=== PATIENT | female | born 1985 | race Caucasian/White ===

== ENCOUNTER 2022-06-03 10:32 | Outpatient (CLI) | payer OTHER, SELFPAY | END 2022-06-03 10:33 | disposition home or self-care (01) | LOC: LKVREF 06-07 14:45 | PROVIDERS: PCP Physician Assistant Medical; Visit Provider Nurse Practitioner Family | DX: R30.0 Dysuria (principal); R10.9 Unspecified abdominal pain | CPT/HCPCS: 87086; 87186 ==

== ENCOUNTER 2023-07-17 01:50 | Emergency (ER) | payer OTHER, SELFPAY ==
[2023-07-17 01:59] VITALS: BP 131/73; PULSE 102; RESP 18; TEMP 37.6; O2SAT 97; BMI 25.7
--- NOTE | 2023-07-17 02:12 | ED.NAVMDI ---
HPI - Nausea/Vomiting/Diarrhea General Time Seen by Provider: 02:12 Date Seen: 07/17/23 Chief complaint: Nausea/Vomiting Stated complaint: Abdominal Pain/Diarrhea/Fever Time Seen by Provider: 07/17/23 02:12 Source: patient and RN notes reviewed Mode of arrival: ambulatory Limitations: no limitations History of Present Illness HPI Narrative: Augusta is a very pleasant 37-year-old female with a history of IBS who comes to the emergency room for evaluation regarding abdominal pain with diarrhea fever and vomiting. Patient notes the onset of this earlier this evening. Prior to coming here she noted a temp of a 100.3?. She denies any recent travel or other ill contacts at home. She notes that now she has abdominal pain in the right upper quadrant. She describes this is quite severe. She has not been able to take any medications and is requesting something for pain although she states that she cannot take narcotics because they make her sick. She feels like she is very dehydrated. She denies any back pain or radiating pain from the belly. She notes no dysuria. No blood in her stool or vomit. No recent travel, antibiotic use, ingestion of uncooked meats. Associated nausea: Yes Related Data Home Medications Medication Instructions Recorded Confirmed No Known Home Medications 07/17/23 07/17/23 Allergies Allergy/AdvReac Type Severity Reaction Status Date / Time lorazepam [From Ativan] Allergy Verified 07/17/23 02:04 Review of Systems Status of ROS: Reports: 10 or more systems reviewed and unremarkable except as noted in History and below Narrative: Denies as she just finished her. Const: Reports: fever and fatigue; Denies: chills ENMT: Denies: throat pain, neck pain, throat swelling, difficulty swallowing or hoarseness Cardio: Denies: chest pain or shortness of breath with exertion Resp: Denies: shortness of breath, cough or wheezing GI: Reports: abdominal pain, nausea, vomiting and diarrhea; Denies: difficulty swallowing or blood in stool : Denies: painful urination or urinary frequency Musculo: Denies: neck pain Integ/Breast: Denies: rash Neuro: Denies: headache Endo: Reports: fatigue Allergy/Immuno: Denies: throat swelling or wheezing PFSH PFSH Social History Smoking Status: Never smoker Do you use any of these nicotine containing products: None How often do you have a drink containing alcohol: never AUDIT-C Alcohol total score: 0 Non-prescribed substance use: denies use Exam Narrative: Exam Narrative: Patient is alert and oriented. She is nontoxic in appearance but does appear fatigued. Eyes ears nose clear. Tacky mucous membranes. Lips are dry. Neck is supple. No lymphadenopathy. Heart with a tachycardic rate but normal rhythm. Lungs are clear bilaterally. No CVA tenderness with percussion. Abdomen is soft but she has positive Aprada sign with right upper quadrant I tenderness with palpation. Bowel sounds are with increased sound. Moving all extremities Const: Vital Signs, click to edit/add: Vital Signs - 24 hr 07/17/23 01:59 07/17/23 04:30 Temperature 99.6 F Pulse Rate 95 Pulse Rate [Pulse Oximeter] 102 H Respiratory Rate 18 16 Blood Pressure 110/68 Blood Pressure [Ri ght Upper Arm] 131/73 Pulse Oximetry 97 98 Oxygen Delivery Me thod Room Air Room Air Documenting provider has reviewed patient's vital signs: yes Course Course ED Course: At this time differential diagnosis includes but is not limited to cholecystitis, colitis, gastroenteritis, enteritis, viral syndrome, hepatitis. Patient will have IV placed be given Toradol 15 mg IV Zofran 4 mg IV and 1 L normal saline. Given her examination do suggest CT with IV contrast. Will also check CBC, comprehensive panel, bili room, lactate, CRP, urinalysis. Reevaluation(s) Reevaluation #1: Patient notes resolution of nausea and improvement of pain. She continues to decline any narcotic pain medication at this time. Reevaluation #2: Patient notes she is much better after 2 L of normal saline. Vital Signs Vital signs: Initial Vital Signs Temperature 99.6 F 07/17/23 01:59 Temperature Source Temporal Artery Scan 07/17/23 01:59 Pulse Rate 102 H 07/17/23 01:59 Respiratory Rate 18 07/17/23 01:59 Blood Pressure 131/73 07/17/23 01:59 Blood Pressure Mean 92 07/17/23 01:59 Blood Pressure Position Supine 07/17/23 01:59 Pulse Oximetry 97 07/17/23 01:59 Oxygen Delivery Method Room Air 07/17/23 01:59 Vital Signs Temperature 99.6 F 07/17/23 01:59 Pulse Rate 102 H 07/17/23 01:59 Respiratory Rate 18 07/17/23 01:59 Blood Pressure 131/73 07/17/23 01:59 Pulse Oximetry 97 07/17/23 01:59 Oxygen Delivery Method Room Air 07/17/23 01:59 Temperature 99.6 F 07/17/23 01:59 Pulse Rate 95 07/17/23 04:30 Respiratory Rate 16 07/17/23 04:30 Blood Pressure 110/68 07/17/23 04:30 Pulse Oximetry 98 07/17/23 04:30 Oxygen Delivery Method Room Air 07/17/23 04:30 MDM - Nausea/Vomiting/Diarrhea MDM Narrative Medical decision making narrative: 1. Colitis-patient has what appears to be bowel wall thickening from the cecum to the splenic flexure. No evidence of cholecystitis or stones noted. ( also states that she had an ultrasound in October that was negative for stones). Patient without blood in the stool. Not septic at this time with a normal lactate. 2 L normal saline is given. Patient will be discharged home with Zofran as needed for nausea. She declines any narcotic pain medications and will be using ibuprofen at home. If patient has ongoing symptoms in diarrhea we may get a stool culture. She may also need additional radiological studies such as ultrasound or repeat CT if she is not improving. 2. Dehydration-2 L normal saline given 3. Disposition-home with . Rest, push fluids as much as possible. Zofran as needed for nausea. Return for worsening symptoms. Medical Records Attestation: I reviewed the patient's medical records. Lab Data Attestation: I reviewed the patient's lab results. Labs: Lab Results 07/17/23 Range/Units 02:17 WBC 12.30 H (4.50-11.00) K/uL RBC 4.60 (4.00-5.20) m/uL Hgb 13.4 (12.0-16.0) gm/dL Hct 40.4 (33.0-51.0) % MCV 88 (80-100) fL MCH 29 (26-34) pg MCHC 33 (32-36) gm/dL RDW Coeff of Selvin 12.9 (11.5-15.5) % Plt Count 244 (140-440) K/uL Neut % (Auto) 89.4 H (42.0-72.0) % Lymph % (Auto) 3.1 L (20-44) % [place] % (Auto) 6.0 (0.0-11.0) % Eos % (Auto) 0.2 (0.0-7.0) % Baso % (Auto) 0.2 (0.0-3.0) % Neut # (Auto) 11.00 H (1.7-7.0) K/uL Lymph # (Auto) 0.40 L (0.90-2.90) K/uL [place] # (Auto) 0.70 (0.00-0.90) K/UL Eos # (Auto) 0.00 (0.00-0.50) K/uL Baso # (Auto) 0.00 (0.00-0.30) K/uL Abs Immat Gran (auto) 0.10 (0.00-0.30) K/uL Imm/Tot Granulo (auto) 1.1 % Sodium 139 (135-149) mmol/L Potassium 3.9 (3.6-5.1) mmol/L Chloride 104 (96-114) mmol/L Carbon Dioxide 21 (20-32) mmol/L Anion Gap 14 (7-15) mEq/L BUN 8 (5-24) mg/dL Creatinine 0.6 (0.5-1.5) mg/dL Estimated Creat Clear 108.70 Estimated GFR 117 ml/min Glucose 123 H (60-115) mg/dL Lactate 1.2 (0.5-1.9) mmol/L Calcium 9.1 (8.4-10.6) mg/dL Total Bilirubin 0.7 (0.1-1.5) mg/dL Direct Bilirubin 0.1 (0.0-0.5) mg/dL AST 38 H (12-35) U/L ALT 41 H (4-35) U/L Alkaline Phosphatase 69 (40-150) U/L C-Reactive Protein 2.0 H (0.5-1.0) mg/dL Total Protein 7.9 (6.0-8.3) g/dL Albumin 4.7 (3.3-5.0) g/dL Imaging Data CT scan - abdomen: Attestation: I have reviewed the pertinent imaging results. My impression: Gallbladder appears to be without evidence of wall thickening or stones. Radiologist's impression: Lower chest: Unremarkable. Liver: Moderate fatty infiltration of the liver is noted. Spleen: Unremarkable. Pancreas: Unremarkable. Gallbladder: Unremarkable. Kidney: Unremarkable. No kidney or ureteral stones or obstruction seen. Adrenal: Unremarkable. Bowel: The colon is collapsed and difficult to evaluate but there is suspected wall thickening present from the cecum to the splenic flexure. The appendix is normal in appearance and size. Vascular: Unremarkable. Lymph: Unremarkable. Peritoneum: Unremarkable. No pneumoperitoneum is seen. No significant ascites is noted. Pelvis: Unremarkable. Soft tissue: Unremarkable. Bone: Unremarkable for age. IMPRESSION: 1. The colon is collapsed and difficult to evaluate but there is suspected wall thickening present from the cecum to the splenic flexure. This may be due to infectious colitis or inflammatory bowel disease. Discharge Plan Discharge Clinical Impression: Colitis, Abdominal pain, vomiting, and diarrhea Patient Disposition: Home, Self-Care Condition: Improved Additional Instructions: Zofran as needed for nausea. 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 Try to push fluids as much as possible but not just water. Sprite, Gatorade, Powerade, Pedialyte except trap are all very acceptable. Light foods such as rice, toast, Cheerios also very acceptable. Avoid dairy at this time. Return to the emergency room for increasing fever, inability to take in food or drink, worsening pain and worsening symptoms. Prescriptions: No Action No Known Home Medications Follow Up/Referrals: Mabel Chapman PA-C [Primary Care Provider] - Stand Alone Forms: [facility] Info Instructions
--- NOTE | 2023-07-17 02:22 | CRLHL7_ITS ---
For Patients: As a result of the Century Cures Act, medical imaging exams and procedure reports are released immediately into your electronic medical record. You may view this report before your referring provider. If you have questions, please contact your health care provider. INDICATION: Right sided abdominal pain. Nausea and vomiting right ovarian cystic lesion present 2.5 cm. TECHNIQUE: CT Abdomen and pelvis with i.v. contrast. Coronal and sagittal reformats were obtained. CONTRAST: 74 mL Isovue 370 COMPARISON: None FINDINGS: Lower chest: Unremarkable. Liver: Moderate fatty infiltration of the liver is noted. Spleen: Unremarkable. Pancreas: Unremarkable. Gallbladder: Unremarkable. Kidney: Unremarkable. No kidney or ureteral stones or obstruction seen. Adrenal: Unremarkable. Bowel: The colon is collapsed and difficult to evaluate but there is suspected wall thickening present from the cecum to the splenic flexure. The appendix is normal in appearance and size. Vascular: Unremarkable. Lymph: Unremarkable. Peritoneum: Unremarkable. No pneumoperitoneum is seen. No significant ascites is noted. Pelvis: Unremarkable. Soft tissue: Unremarkable. Bone: Unremarkable for age. IMPRESSION: 1. The colon is collapsed and difficult to evaluate but there is suspected wall thickening present from the cecum to the splenic flexure. This may be due to infectious colitis or inflammatory bowel disease. Dictated by Lucio Shukla MD @ 07/17/2023 3:59:17 AM Please note that all CT scans at this facility use dose modulation, iterative reconstruction, and/or weight-based dosing when appropriate to reduce radiation dose to as low as reasonably achievable. Dictated by: Lucio Shukla MD @ 07/17/2023 04:00:34 (Electronically Signed)
[2023-07-17] MEDS: KETOROLAC 15 MG/ML inj IVP (02:32)
[2023-07-17] MEDS: 0.9 % SODIUM CHLORIDE 1000 ml 1,000 ML IV ×2 (02:32→04:29)
[2023-07-17] MEDS: ONDANSETRON 2 MG/ML inj 4 MG IVP (02:32)
[2023-07-17 02:37] LABS: Basophils Percent Auto 0.2 % (0.0-3.0); Eosinophils Percent Auto 0.2 % (0.0-7.0); Hematocrit 40.4 % (33.0-51.0); Hemoglobin* 13.4 gm/dL (12.0-16.0); Immature Granulocytes Pct Auto 1.1 %; Lactate* 1.2 mmol/L (0.5-1.9); Lymphocytes Percent Auto 3.1 % (20-44); Mean Corpuscular HGB Conc 33 gm/dL (32-36); Mean Corpuscular Hemoglobin 29 pg (26-34); Mean Corpuscular Volume 88 fL (80-100); Neutrophils Percent Auto 89.4 % (42.0-72.0); Platelet Count* 244 K/uL (140-440); RDW Coefficient of Variation % 12.9 % (11.5-15.5)
[2023-07-17 02:38] LABS: Slide Review Reflex No
[2023-07-17 02:54] LABS: Albumin* 4.7 g/dL (3.3-5.0); Chloride* 104 mmol/L (96-114)
[2023-07-17 02:55] LABS: Potassium* 3.9 mmol/L (3.6-5.1); Sodium* 139 mmol/L (135-149)
[2023-07-17 02:57] LABS: Alkaline Phosphatase* 69 U/L (40-150); Anion Gap 14 mEq/L (7-15); Aspartate Amino Transferase* 38 U/L (12-35); Bilirubin Direct* 0.1 mg/dL (0.0-0.5); Bilirubin Total* 0.7 mg/dL (0.1-1.5); Carbon Dioxide* 21 mmol/L (20-32); Creatinine* 0.6 mg/dL (0.5-1.5); Estimated Glomerular Filt Rate 117 ml/min; Total Protein* 7.9 g/dL (6.0-8.3)
[2023-07-17 02:58] LABS: Alanine Aminotransferase* 41 U/L (4-35); Blood Urea Nitrogen* 8 mg/dL (5-24); Calcium* 9.1 mg/dL (8.4-10.6); Glucose* 123 mg/dL (60-115)
[2023-07-17 04:30] VITALS: BP 110/68; PULSE 95; RESP 16; O2SAT 98
--- NOTE | 2023-07-17 05:03 | PC.NURSE ---
patient able to tolerate sprite. states pain and nausae have improved. DC with , patient has no further questions.
== END 2023-07-17 05:03 | disposition home or self-care (01) ==
PROVIDERS: Emergency Provider Family Medicine; PCP Physician Assistant Medical
DX: K52.9 Noninfective gastroenteritis and colitis, unspecified (principal); E86.0 Dehydration
CPT/HCPCS: 36415; 74177; 80053; 82248; 83605; 85025; 86140; 96374; 96375; 99283; 99284; J1885; J2405; J7030; Q9967

== ENCOUNTER 2023-07-20 10:16 | Emergency (ER) | payer OTHER, SELFPAY ==
[2023-07-20 10:23] VITALS: BP 134/92; PULSE 81; RESP 18; TEMP 36.9; O2SAT 98; BMI 25.7
--- NOTE | 2023-07-20 10:45 | ED_ITS ---
HPI - General Adult General Chief complaint: Abdominal Pain Stated complaint: diarrhea,abdominal pain Time Seen by Provider: 07/20/23 10:45 History of Present Illness HPI narrative: was seen here on Sunday early am with n /v/d and a fever. was treated and sent home-dx was colitis. had a ct and labs done. diarrhea has worsened and abd pain has not abated. unable to take po due to constant diarrhea. Anytime i take a sip of water i have diarrhea . has not eaten since 190. denies urinary sxs. has upper abd pain that is a 5/10. feels weak and fatigued. feels dizzy when up. has been lying down most of the time. 37-year-old woman presenting to the emergency department with complaint of persistent diarrhea and cramping abdominal pain. Any oral intake triggers diarrhea and cramping. Just feels generally weak. Increasingly lightheaded when up. Measured a temperature early on in course 4 days ago of 100.3. Has not had any fever since then. No longer vomiting. Underlying history of irritable bowel constipation predominant. Seen in this department 3 days ago where she had CT imaging and suspected colitis. No recent antibiotics. No concerning ingestions. Not describing any blood in stool. 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 She notes a family history of Crohn's. Related Data Previous Rx's Medication Instructions Recorded hyoscyamine sulfate 0.125 mg 0.125 - 0.25 mg (1 - 2 x 0.125 mg) 07/20/23 disintegrating tablet PO QID PRN Abdominal cramping #30 tabs Allergies Allergy/AdvReac Type Severity Reaction Status Date / Time lorazepam [From Ativan] Allergy Verified 07/17/23 02:04 Review of Systems Status of ROS: Reports: 6 or more systems reviewed and unremarkable except as noted in History and below [facility] Social History Smoking Status: Never smoker Do you use any of these nicotine containing products: None How often do you have a drink containing alcohol: never How often do you have six or more drinks on one occasion: Never AUDIT-C Alcohol total score: 0 Non-prescribed substance use: denies use service: No Exam Narrative: Exam Narrative: A pleasant. Does appear tired. Lips oropharynx are moist. Cranial nerves 2-12 intact. She is fully alert. Abdomen is with present bowel sounds, soft and diffusely tender. Extremities are without edema. She is well-perfused. Heart in regular rate and rhythm. Const: Vital Signs, click to edit/add: Vital Signs - 24 hr 07/20/23 10:23 Temperature 98.5 F Pulse Rate [Pulse Oximeter] 81 Respiratory Rate 18 Blood Pressure [Ri ght Upper Arm] 134/92 H Pulse Oximetry 98 Oxygen Delivery Me thod Room Air Documenting provider has reviewed patient's vital signs: yes Course Vital Signs Vital signs: Initial Vital Signs Temperature 98.5 F 07/20/23 10:23 Temperature Source Temporal Artery Scan 07/20/23 10:23 Pulse Rate 81 07/20/23 10:23 Pulse Rhythm Regular 07/20/23 10:23 Respiratory Rate 18 07/20/23 10:23 Blood Pressure 134/92 H 07/20/23 10:23 Blood Pressure Mean 106 H 07/20/23 10:23 Blood Pressure Position Supine 07/20/23 10:23 Pulse Oximetry 98 07/20/23 10:23 Oxygen Delivery Method Room Air 07/20/23 10:23 Vital Signs Temperature 98.5 F 07/20/23 10:23 Pulse Rate 81 07/20/23 10:23 Respiratory Rate 18 07/20/23 10:23 Blood Pressure 134/92 H 07/20/23 10:23 Pulse Oximetry 98 07/20/23 10:23 Oxygen Delivery Method Room Air 07/20/23 10:23 Temperature 98.5 F 07/20/23 10:23 Pulse Rate 81 07/20/23 10:23 Respiratory Rate 18 07/20/23 10:23 Blood Pressure 134/92 H 07/20/23 10:23 Pulse Oximetry 98 07/20/23 10:23 Oxygen Delivery Method Room Air 07/20/23 10:23 Medical Decision Making MDM Narrative Medical decision making narrative: Does sound to have profuse diarrhea and related abdominal cramping in the setting of recently diagnosed colitis and irritable bowel. I am not necessary surprised that the symptoms are continuing. No gut motility agent has been taken yet. At this point would try to treat symptomatically. Recheck labs. She was with mildly elevated white count 3 days ago 12.3. It sounds as though was suggested from prior visit that might benefit from stool culture. White count normal today at 7.4. CRP slightly elevated at 1.7. Initiated L of normal saline. Given ketorolac hyoscyamine; ultimately 2 L of normal saline. Overall felt improved. It sounds as though she felt that the hyoscyamine in particular may have been helpful with cramping and would like more for discharge. See patient discharge plan Medical Records Medical records reviewed: Yes I reviewed the patient's medical records Lab Data Lab results reviewed: Yes I reviewed the patient's lab results Labs: Lab Results 07/20/23 Range/Units 10:55 WBC 7.39 (4.50-11.00) K/uL RBC 4.38 (4.00-5.20) m/uL Hgb 12.8 (12.0-16.0) gm/dL Hct 38.2 (33.0-51.0) % MCV 87 (80-100) fL MCH 29 (26-34) pg MCHC 34 (32-36) gm/dL RDW Coeff of Selvin 12.7 (11.5-15.5) % Plt Count 234 (140-440) K/uL Neut % (Auto) 73.6 H (42.0-72.0) % Lymph % (Auto) 15.7 L (20-44) % [place] % (Auto) 8.0 (0.0-11.0) % Eos % (Auto) 1.5 (0.0-7.0) % Baso % (Auto) 0.4 (0.0-3.0) % Neut # (Auto) 5.40 (1.7-7.0) K/uL Lymph # (Auto) 1.20 (0.90-2.90) K/uL [place] # (Auto) 0.60 (0.00-0.90) K/UL Eos # (Auto) 0.11 (0.00-0.50) K/uL Baso # (Auto) 0.03 (0.00-0.30) K/uL Abs Immat Gran (auto) 0.06 (0.00-0.30) K/uL Imm/Tot Granulo (auto) 0.8 % ESR 16 (2-20) mm/hr Sodium 140 (135-149) mmol/L Potassium 3.5 L (3.6-5.1) mmol/L Chloride 105 (96-114) mmol/L Carbon Dioxide 25 (20-32) mmol/L Anion Gap 10 (7-15) mEq/L BUN 4 L (5-24) mg/dL Creatinine 0.6 (0.5-1.5) mg/dL Estimated Creat Clear 108.70 Estimated GFR 117 ml/min Glucose 86 (60-115) mg/dL Calcium 9.1 (8.4-10.6) mg/dL Magnesium 2.0 (1.5-2.6) mg/dL C-Reactive Protein 1.7 H (0.5-1.0) mg/dL Discharge Plan Discharge Clinical Impression: Colitis, Abdominal pain, Dehydration Patient Disposition: Home w/ Parent or Adult Condition: Improved Additional Instructions: Continue to focus on hydration. Small frequent amounts of fluid intake. I would avoid straight water on an irritated stomach. Slow advance of diet over the next 36 hours or so. Diluted juices, soup broths. [place], rice, crackers. Agreed, loperamide might push you too far the other direction into constipation; I will leave this up to you though. Stool culture is pending here. Will be sending in hyoscyamine for abdominal cramping as you think that this may have been helpful for you today. Otherwise ibuprofen acetaminophen; the former ideally with a little oral intake of some sort. Prescriptions: New hyoscyamine sulfate 0.125 mg tablet,disintegrating 0.125 - 0.25 mg PO QID PRN (Reason: Abdominal cramping) Qty: 30 0RF Follow Up/Referrals: Mabel Chapman PA-C [Primary Care Provider] - Stand Alone Forms: [facility] Info Instructions
[2023-07-20] MEDS: KETOROLAC 30 MG/ML inj IVP (11:17)
[2023-07-20] MEDS: HYOSCYAMINE SULFATE 0.125 MG TAB 0.25 MG SUBLINGUAL (11:18)
[2023-07-20] MEDS: 0.9 % SODIUM CHLORIDE 1000 ml 1,000 ML IV ×2 (11:19→12:42)
[2023-07-20 11:39] LABS: Basophils Absolute Auto 0.03 K/uL (0.00-0.30); Basophils Percent Auto 0.4 % (0.0-3.0); Eosinophils Absolute Auto 0.11 K/uL (0.00-0.50); Eosinophils Percent Auto 1.5 % (0.0-7.0); Hematocrit 38.2 % (33.0-51.0); Hemoglobin* 12.8 gm/dL (12.0-16.0); Immature Granulocytes Abs Auto 0.06 K/uL (0.00-0.30); Immature Granulocytes Pct Auto 0.8 %; Lymphocytes Percent Auto 15.7 % (20-44); Mean Corpuscular HGB Conc 34 gm/dL (32-36); Mean Corpuscular Hemoglobin 29 pg (26-34); Mean Corpuscular Volume 87 fL (80-100); Neutrophils Percent Auto 73.6 % (42.0-72.0); Platelet Count* 234 K/uL (140-440); RDW Coefficient of Variation % 12.7 % (11.5-15.5); Red Blood Count 4.38 m/uL (4.00-5.20); White Blood Count* 7.39 K/uL (4.50-11.00)
[2023-07-20 11:46] LABS: Slide Review Reflex No
[2023-07-20 11:47] LABS: Chloride* 105 mmol/L (96-114); Potassium* 3.5 mmol/L (3.6-5.1); Sodium* 140 mmol/L (135-149)
[2023-07-20 11:50] LABS: Anion Gap 10 mEq/L (7-15); Blood Urea Nitrogen* 4 mg/dL (5-24); Carbon Dioxide* 25 mmol/L (20-32); Creatinine* 0.6 mg/dL (0.5-1.5); Estimated Glomerular Filt Rate 117 ml/min
[2023-07-20 11:51] LABS: Calcium* 9.1 mg/dL (8.4-10.6); Glucose* 86 mg/dL (60-115)
[2023-07-20 11:53] LABS: C Reactive Protein* 1.7 mg/dL (0.5-1.0)
[2023-07-20 12:06] LABS: Erythrocyte SedimentationRate* 16 mm/hr (2-20)
== END 2023-07-20 14:58 | disposition home or self-care (01) ==
PROVIDERS: Emergency Provider Family Medicine; PCP Physician Assistant Medical
DX: K52.9 Noninfective gastroenteritis and colitis, unspecified (principal); E86.0 Dehydration
CPT/HCPCS: 36415; 80048; 83735; 85025; 85651; 86140; 87045; 87046; 87077; 87147; 87427; 96374; 99283; 99284; A9270; J1885; J7030